=== PATIENT | female | born 1970 ===

== ENCOUNTER 2017-11-16 08:56 | Day surgery (SDC) | payer BC ==
[2017-11-16] MEDS ORDERED: Lactated Ringer's 1,000 ML IV SCH (11:15)
[2017-11-16] MEDS ORDERED: Propofol 10 mg/ml Inj (20 ML) ONE (11:18)
[2017-11-16] MEDS ORDERED: Lidocaine Hydrochloride 10 ML INJ ONE (11:18)
[2017-11-16] MEDS ORDERED: Albuterol HFA 90 mcg/actuation (8 g) ONE (12:06)
[2017-11-16 12:52] VITALS: O2SAT 100
[2017-11-16 12:53] VITALS: RESP 13
[2017-11-16 13:40] VITALS: TEMP 97.8
[2017-11-16 13:44] VITALS: BP 121/64; PULSE 67
== END 2017-11-16 13:38 | disposition home or self-care (01) ==
LOC: C.ENDO 08:56
PROVIDERS: ATTEND Internal Medicine Gastroenterology
DX: K29.50 Unspecified chronic gastritis without bleeding (principal); K21.0 Gastro-esophageal reflux disease with esophagitis; R13.10 Dysphagia, unspecified; J45.909 Unspecified asthma, uncomplicated; G43.909 Migraine, unspecified, not intractable, without status migrainosus
CPT/HCPCS: 43239; 84703; 88305; 88312; 88313; 88342; J2704; J7120